=== PATIENT | male | born 1955 | race Caucasian/White ===

== ENCOUNTER → 2017-10-09 | Outpatient (CLI) | payer MEDICARE ==
[2017-10-09 07:34] LABS: Basophils % (A) 1 %; Eosinophils # (A) 0.2 k/uL (0-0.7); Eosinophils % (A) 3 %; HGB 17.1 gm/dL (13.0-17.5); Lymphocytes # (A) 1.8 k/uL (1.0-4.8); Lymphocytes % (A) 31 %; MCH 31.8 pg (25.0-35.0); MCHC 32.3 g/dL (31.0-37.0); MCV 98.3 fL (80.0-100.0); Monocytes # (A) 0.5 k/uL (0-1.0); Monocytes % (A) 8 %; Neutrophils # (A) 3.2 k/uL (1.3-7.7); Neutrophils % (A) 55 %; Platelet Count 189 k/uL (150-450); RBC 5.39 m/uL (4.30-5.90); RDW 14.2 % (11.5-15.5); WBC 5.9 k/uL (3.8-10.6)
[2017-10-09 07:39] LABS: INR 2.5 (<1.2); Prothrombin Time 22.2 sec (9.0-12.0)
[2017-10-09 07:53] LABS: ALT 22 U/L (21-72); AST 21 U/L (17-59); Albumin 4.2 g/dL (3.5-5.0); Alkaline Phosphatase 55 U/L (38-126); Anion Gap 12 mmol/L; Blood Urea Nitrogen 19 mg/dL (9-20); Calcium 9.2 mg/dL (8.4-10.2); Carbon Dioxide 29 mmol/L (22-30); Chloride 96 mmol/L (98-107); Cholesterol 184 mg/dL (<200); Glucose 102 mg/dL (74-99); HDL Cholesterol 59 mg/dL (40-60); LDL Cholesterol,Calculated 99 mg/dL (0-99); Potassium 4.3 mmol/L (3.5-5.1); Sodium 137 mmol/L (137-145); Total Bilirubin 1.1 mg/dL (0.2-1.3); Triglycerides 128 mg/dL (<150)
== END | disposition home or self-care (01) ==
LOC: LABWHC1 06:43
PROVIDERS: ATTEND Internal Medicine
DX: E11.9 Type 2 diabetes mellitus without complications (principal); I10 Essential (primary) hypertension; I48.1 Persistent atrial fibrillation
CPT/HCPCS: 36415; 80053; 80061; 84443; 85025; 85610

== ENCOUNTER → 2018-06-22 | Outpatient (CLI) | payer MEDICARE ==
[2018-06-22 08:01] LABS: Basophils # (A) 0.1 k/uL (0-0.2); Basophils % (A) 1 %; Eosinophils # (A) 0.2 k/uL (0-0.7); Eosinophils % (A) 3 %; HGB 17.8 gm/dL (13.0-17.5); Lymphocytes # (A) 1.9 k/uL (1.0-4.8); Lymphocytes % (A) 31 %; MCH 33.3 pg (25.0-35.0); MCHC 31.8 g/dL (31.0-37.0); MCV 104.6 fL (80.0-100.0); Macrocytosis Slight; Mean Platelet Volume 7.4; Monocytes # (A) 0.4 k/uL (0-1.0); Monocytes % (A) 7 %; Neutrophils # (A) 3.4 k/uL (1.3-7.7); Neutrophils % (A) 56 %; Platelet Count 210 k/uL (150-450); RBC 5.36 m/uL (4.30-5.90)
[2018-06-22 11:55] LABS: Albumin 4.4 g/dL (3.80-4.90); Albumin/Globulin Ratio 1.76 (1.20-2.10); Anion Gap 10.9 mmol/L (4.00-12.00); Calcium 9.5 mg/dL (8.7-10.3); Carbon Dioxide 28.1 mmol/L (21.6-31.8); Globulin 2.5 g/dL (1.6-3.3); LDL Cholesterol,Calculated 99.4 mg/dL (0.0-131.0); Potassium 4.4 mmol/L (3.5-5.5); Total Bilirubin 1.2 mg/dL (0.2-1.2); Total Protein 6.9 g/dL (6.2-8.2); VLDL Calculation 22.6 mg/dL (5.00-40.00)
== END ==
LOC: LABWHC1 07:10
PROVIDERS: ATTEND Internal Medicine
DX: E11.9 Type 2 diabetes mellitus without complications (principal); E78.5 Hyperlipidemia, unspecified; I48.1 Persistent atrial fibrillation
CPT/HCPCS: 36415; 80053; 80061; 83036; 84443; 85025

== ENCOUNTER 2018-12-08 08:31 | Emergency (ER) | payer MEDICARE ==
[2018-12-08 08:43] VITALS: RESP 18
[2018-12-08] MEDS ORDERED: methylPREDNISolone SOD SUCCI 125 MG/2 ML VIAL IM ONE (09:00)
[2018-12-08] MEDS ORDERED: KETOROLAC 60 MG/2 ML VIAL IM STA (09:00)
[2018-12-08] MEDS ORDERED: COLCHICINE 0.6 MG EACH PO STA (09:04)
--- NOTE | 2018-12-08 09:07 | ED ---
Extremity Problem HPI - General Chief complaint: Extremity Problem,Nontraumatic Stated complaint: gout pain Time Seen by Provider: 12/08/18 08:46 Source: patient, RN notes reviewed, old records reviewed Mode of arrival: ambulatory Limitations: no limitations - History of Present Illness Initial comments: This Patient is a 63-year-old male with history of gouty arthritis of his feet. He presents emergency Department today with complaints of pain and his left hand for the past 3 weeks included in swelling. He has a that this is related to arthritis. He states the swelling has continued but has diminished since the initial episode. Patient presents today because now he is having swelling and pain within the second MCP joint. Patient is concerned this will happen to his right hand. Patient states that he is on Coumadin, and therefore has not been taking Motrin. Patient reports he has a follow-up appointment on December 18 with his primary care doctor. - Related Data Home Medications Medication Instructions Recorded Confirmed Digoxin [Lanoxin] 250 mcg PO DAILY 01/14/14 12/08/18 Furosemide [Lasix] 80 mg PO BID 01/14/14 12/08/18 Lisinopril [Zestril] 2.5 mg PO DAILY 01/14/14 12/08/18 Simvastatin [Zocor] 20 mg PO HS 01/14/14 12/08/18 Spironolactone [Aldactone] 25 mg PO DAILY 01/14/14 12/08/18 Warfarin [Coumadin] 5 mg PO MOWEFR 01/14/14 12/08/18 Acetaminophen-Codeine 300-30mg 1 tab PO DAILY PRN 12/08/18 12/08/18 [Tylenol #3] Metoprolol Succinate (ER) [Toprol 100 mg PO BID 12/08/18 12/08/18 Xl] Warfarin Sodium 2.5 mg PO SUTUTHSA 12/08/18 12/08/18 metFORMIN HCL 1,000 mg PO DAILY 12/08/18 12/08/18 Previous Rx's Medication Instructions Recorded Colchicine [Colcrys] 0.6 mg PO BID #4 tablet 12/08/18 predniSONE 10 mg PO DAILY #15 tab 12/08/18 Allergies Allergy/AdvReac Type Severity Reaction Status Date / Time No Known Allergies Allergy Verified 12/08/18 09:10 Review of Systems ROS Statement: Those systems with pertinent positive or pertinent negative responses have been documented in the HPI. ROS Other: All systems not noted in ROS Statement are negative. Past Medical History Past Medical History: Hyperlipidemia, Hypertension Additional Past Medical History / Comment(s): gout History of Any Multi-Drug Resistant Organisms: None Reported Past Surgical History: No Surgical Hx Reported Past Psychological History: No Psychological Hx Reported Smoking Status: Current every day smoker Past Alcohol Use History: Daily, Heavy Past Drug Use History: None Reported General Exam - General Exam Comments Initial Comments: This is a 63-year-old male. Alert and oriented 3.No distress. Limitations: no limitations General appearance: alert, in no apparent distress Head exam: Present: atraumatic, normocephalic, normal inspection Eye exam: Present: normal appearance, PERRL, EOMI. Absent: scleral icterus, conjunctival injection, periorbital swelling ENT exam: Present: normal exam, mucous membranes moist Neck exam: Present: normal inspection. Absent: tenderness, meningismus, lymphadenopathy Respiratory exam: Present: normal lung sounds bilaterally. Absent: respiratory distress, wheezes, rales, rhonchi, stridor Cardiovascular Exam: Present: regular rate, normal rhythm, normal heart sounds. Absent: systolic murmur, diastolic murmur, rubs, gallop, clicks GI/Abdominal exam: Present: soft, normal bowel sounds. Absent: distended, tenderness, guarding, rebound, rigid Extremities exam: Present: normal inspection, full ROM, normal capillary refill. Absent: tenderness, pedal edema, joint swelling, calf tenderness Right Forearm Wrist exam: Present: normal inspection, full ROM Hand Wrist exam: Present: full ROM, erythema (over second MCP, swelling noted. Full ROM). Absent: normal inspection Neuro motor exam: Present: wrist extension intact, thumb opposition intact, thumb IP flexion intact, thumb adduction intact, fingers 2-5 abduction intact Back exam: Present: normal inspection Neurological exam: Present: alert, oriented X3, CN II-XII intact Psychiatric exam: Present: normal affect, normal mood Skin exam: Present: warm Course Vital Signs 12/08/18 08:39 Temperature 98.8 F Pulse Rate 66 Respiratory 18 Rate Blood Pressure 124/87 O2 Sat by Pulse 98 Oximetry Medical Decision Making - Medical Decision Making This is a 63-year-old male presents emergency room today with bilateral hand pain and swelling. Patient reports has had left hand swelling and pain for the past 3 weeks. He states that today he noticed increased pain over his second MCP joint. Patient has concern for another gout exacerbation. Given IM Toradol and slight Medrol. Given a dose of colchicine emergency. Patient was started on steroid taper, as well as chemistries and colchicine anti-inflammatory meds. Discussed strict return parameters and close or for follow-up. Patient agrees to treatment plan will comply. Return parameters were discussed. - Radiology Data Radiology results: report reviewed Findings may represent zoster arthritis with features of what may be chronic gout. Disposition Clinical Impression: Gouty arthritis of left hand, Acute gout of right hand Disposition: HOME SELF-CARE Condition: Good Instructions (If sedation given, give patient instructions): Low Purine Diet (ED), Gout (ED) Additional Instructions: Patient advised to have close follow-up with data modeling specialist. Patient can take ibuprofen 600 mg tablets 3 times a day for the next 2-3 days as well. Take medications as prescribed. Close follow-up with your primary care doctor. Prescriptions: Colchicine [Colcrys] 0.6 mg PO BID #4 tablet predniSONE 10 mg PO DAILY #15 tab Is patient prescribed a controlled substance at d/c from ED?: No Referrals: Tra Duggan MD [Primary Care Provider] - 1-2 days Jean Paul Lee DO [Doctor of Osteopathic Medicine] - 1-2 days Farhan Chavez DO [Doctor of Osteopathic Medicine] - 1-2 days Time of Disposition: 10:22
--- NOTE | 2018-12-08 10:01 | XR ---
Bilateral hands HISTORY: Gout, pain 2 views of each hand are submitted on a total of 4 images No comparisons At the carpometacarpal joints of the first digits there is joint space widening, some local sclerosis , mild subluxation, possibly related to old gout. Ossific densities are present lateral to the right carpometacarpal joint. There are cystic lucencies are present throughout bilateral carpal bones. Ther e is joint space loss and marginal spurring at the metacarpophalangeal joints. Soft tissue swelling i s noted. IMPRESSION: Findings may represent osteoarthritis with features of what may be chronic gout.
[2018-12-08 10:38] VITALS: BP 105/73; PULSE 53; TEMP 97.9
== END 2018-12-08 10:40 | disposition home or self-care (01) ==
LOC: EC 08:31
DX: M10.9 Gout, unspecified (principal); E78.5 Hyperlipidemia, unspecified; I10 Essential (primary) hypertension; F17.200 Nicotine dependence, unspecified, uncomplicated; Z79.01 Long term (current) use of anticoagulants; Z79.84 Long term (current) use of oral hypoglycemic drugs; Z79.899 Other long term (current) drug therapy
CPT/HCPCS: 73120; 99284; 96372 ×2; J2930; J1885

== ENCOUNTER → 2019-07-22 | Outpatient (CLI) | payer MEDICARE ==
[2019-07-22 08:45] LABS: Basophils # (A) 0.1 k/uL (0-0.2); Basophils % (A) 1 %; Eosinophils # (A) 0.2 k/uL (0-0.7); Eosinophils % (A) 3 %; HCT 51.9 % (39.0-53.0); HGB 17.2 gm/dL (13.0-17.5); Lymphocytes # (A) 1.6 k/uL (1.0-4.8); Lymphocytes % (A) 24 %; MCH 33.6 pg (25.0-35.0); MCHC 33.1 g/dL (31.0-37.0); MCV 101.5 fL (80.0-100.0); Macrocytosis Slight; Mean Platelet Volume 8.4; Monocytes # (A) 0.4 k/uL (0-1.0); Monocytes % (A) 6 %; Neutrophils # (A) 4.1 k/uL (1.3-7.7); Neutrophils % (A) 63 %; Platelet Count 196 k/uL (150-450); RBC 5.11 m/uL (4.30-5.90); RDW 13.1 % (11.5-15.5); WBC 6.5 k/uL (3.8-10.6)
[2019-07-22 15:43] LABS: Albumin 4.5 g/dL (3.80-4.90); Albumin/Globulin Ratio 1.96 (1.60-3.17); Anion Gap 10.2 mmol/L (4.00-12.00); BUN/Creat Ratio 28.33 Ratio (12.00-20.00); Calcium 9.3 mg/dL (8.7-10.3); Carbon Dioxide 25.8 mmol/L (21.6-31.8); Chol/HDL Ratio 3.4; Globulin 2.3 g/dL (1.6-3.3); LDL Cholesterol,Calculated 83.4 mg/dL (0.0-131.0); Potassium 4.4 mmol/L (3.5-5.5); Total Bilirubin 1.1 mg/dL (0.3-1.2); Total Protein 6.8 g/dL (6.2-8.2); VLDL Calculation 19.6 mg/dL (5.00-40.00)
== END | disposition home or self-care (01) ==
LOC: LABWHC1 08:01
PROVIDERS: ATTEND Family Medicine
DX: I10 Essential (primary) hypertension (principal); E11.9 Type 2 diabetes mellitus without complications; E78.5 Hyperlipidemia, unspecified; Z12.5 Encounter for screening for malignant neoplasm of prostate
CPT/HCPCS: 36415; 80053; 80061; 84443; 85025

== ENCOUNTER → 2021-11-13 | Outpatient (CLI) | payer MEDICARE ==
[2021-11-13 15:03] LABS: HCT 53.5 % (39.6-50.0); HGB 16.4 g/dL (13.0-17.0); MCHC 30.7 g/dL (32.0-37.0); MCV 110.8 fL (80.0-97.0); Mean Platelet Volume 11.4 fL (9.5-12.2); NRBC Per 100 WBC 0 /100 WBCS (0.0-0.0); Platelet Count 149 X 10*3/uL (140-440); RBC 4.83 X 10*6/uL (4.40-5.60); RDW 16.7 % (11.5-14.5); WBC 5.22 X 10*3/uL (4.50-10.00)
[2021-11-13 15:26] LABS: ALT 10 U/L (10-49); AST 17 U/L (14-35); African American GFR (CKD) 107.8 (60.0-200.0); Albumin 4.1 g/dL (3.8-4.9); Albumin/Globulin Ratio 1.68 (1.60-3.17); Alkaline Phosphatase 54 U/L (41-126); BUN/Creat Ratio 23.32 Ratio (12.00-20.00); Blood Urea Nitrogen 18.7 mg/dL (9.0-27.0); Calcium 9.3 mg/dL (8.7-10.3); Carbon Dioxide 30.1 mmol/L (20.0-27.5); Chloride 92 mmol/L (96-109); Chol/HDL Ratio 2.94 Ratio; Globulin 2.4 g/dL (1.6-3.3); Glucose 100 mg/dL (70-110); LDL Cholesterol,Calculated 59.2 mg/dL (0.0-131.0); Potassium 4.2 mmol/L (3.5-5.5); Sodium 136 mmol/L (135-145); Total Protein 6.6 g/dL (6.2-8.2)
[2021-11-13 16:57] LABS: Basophils # (A) 0.03 X 10*3/uL (0.00-0.10); Basophils % (A) 0.6 %; Eosinophils % (A) 1.9 %; Immature Grans, Automated 0.2 %; Lymphocytes # (A) 1.15 X 10*3/uL (0.90-5.00); Macrocytosis (M) 3+; Monocytes # (A) 0.42 X 10*3/uL (0.20-1.00); Neutrophils # (A) 3.51 X 10*3/uL (1.80-7.70); Neutrophils % (A) 67.3 %
== END | disposition home or self-care (01) ==
LOC: LABWHC1 08:09
PROVIDERS: ATTEND Family Medicine
DX: Z12.5 Encounter for screening for malignant neoplasm of prostate (principal); I10 Essential (primary) hypertension; E78.5 Hyperlipidemia, unspecified; E11.9 Type 2 diabetes mellitus without complications
CPT/HCPCS: 80061; 80053; 84443; 85025; 83036; 36415; G0103

== ENCOUNTER → 2021-12-05 | Outpatient (CLI) | payer MEDICARE ==
[2021-12-05 08:43] LABS: African American GFR (CKD) >90 (>60 ml/min/1.73 sqM); Non-African American GFR(CKD) >90 (>60 ml/min/1.73 sqM)
[2021-12-05 19:41] LABS: Total Protein 24 Hour,Urine 71.6 mg/dL (0.0-165.0)
[2021-12-05 20:47] LABS: Total Volume 24 Hour,Urine 2800 mL
== END | disposition home or self-care (01) ==
LOC: LABWHC1 07:04
PROVIDERS: ATTEND Family Medicine
DX: R80.9 Proteinuria, unspecified (principal)
CPT/HCPCS: 36415; 81050; 82565; 82575; 84156

== ENCOUNTER 2023-01-29 01:37 | Emergency (ER) | payer MEDICARE ==
[2023-01-29 01:51] VITALS: BP 121/96; PULSE 85; RESP 20
--- NOTE | 2023-01-29 02:30 | ED ---
General Adult HPI - General Chief complaint: Extremity Injury, Lower Stated complaint: Leg Pain Time Seen by Provider: 01/29/23 01:54 Source: patient Mode of arrival: EMS Limitations: no limitations - History of Present Illness Initial comments: Dictation was produced using [employer] dictation software. please excuse any grammatical, word or spelling errors. Chief Complaint: 67-year-old male presents with atraumatic right knee pain History of Present Illness: Patient 67-year-old male states that he's been having issues for the last several weeks. States that he was exerting himself said he felt sharp pain over the lateral aspect of his right knee. Patient states that these pains have been coming more often. He does have history of arthritis in his left shoulder. The ROS documented in this emergency department record has been reviewed and confirmed by me. Those systems with pertinent positive or negative responses have been documented in the HPI. All other systems are other negative and/or noncontributory. - Related Data Home Medications Medication Instructions Recorded Confirmed Digoxin [Lanoxin] 250 mcg PO DAILY 01/14/14 12/08/18 Furosemide [Lasix] 80 mg PO BID 01/14/14 12/08/18 Simvastatin [Zocor] 20 mg PO HS 01/14/14 12/08/18 Spironolactone [Aldactone] 25 mg PO DAILY 01/14/14 12/08/18 Warfarin [Coumadin] 5 mg PO MOWEFR 01/14/14 12/08/18 lisinopriL [Zestril] 2.5 mg PO DAILY 01/14/14 12/08/18 Acetaminophen-Codeine 300-30mg 1 tab PO DAILY PRN 12/08/18 12/08/18 [Tylenol #3] Metoprolol Succinate (ER) [Toprol 100 mg PO BID 12/08/18 12/08/18 Xl] Warfarin Sodium 2.5 mg PO SUTUTHSA 12/08/18 12/08/18 metFORMIN HCL 1,000 mg PO DAILY 12/08/18 12/08/18 Previous Rx's Medication Instructions Recorded Colchicine [Colcrys] 0.6 mg PO BID #4 tablet 12/08/18 predniSONE 10 mg PO DAILY #15 tab 12/08/18 oxyCODONE HCL/ACETAMINOPHEN 1 tab PO Q6HR PRN 3 Days #12 tab 01/29/23 [Percocet 5-325 mg] Allergies Allergy/AdvReac Type Severity Reaction Status Date / Time No Known Allergies Allergy Verified 01/29/23 01:51 Review of Systems ROS Statement: Those systems with pertinent positive or pertinent negative responses have been documented in the HPI. ROS Other: All systems not noted in ROS Statement are negative. Past Medical History Past Medical History: Hyperlipidemia, Hypertension Additional Past Medical History / Comment(s): gout History of Any Multi-Drug Resistant Organisms: None Reported Past Surgical History: No Surgical Hx Reported Past Psychological History: No Psychological Hx Reported Smoking Status: Current every day smoker Past Alcohol Use History: Daily, Heavy Past Drug Use History: None Reported General Exam - General Exam Comments Initial Comments: PHYSICAL EXAM: General Impression: Alert and oriented x3, not in acute distress HEENT: Normocephalic atraumatic, extra-ocular movements intact, pupils equal and reactive to light bilaterally, mucous membranes moist. Cardiovascular: Heart regular rate and rhythm Chest: Able to complete full sentences, no retractions, no tachypnea Motor: no focal deficits noted Neurological: CN II-XII grossly intact, no focal motor or sensory deficits noted Psych: Normal affect and mood Right knee: Palpatory tenderness to the lateral aspect of his right knee, no effusion. No significant pain with the flexion and extension Limitations: no limitations Course Vital Signs 01/29/23 01:46 Temperature 99.1 F Pulse Rate 85 Respiratory 20 Rate Blood Pressure 121/96 O2 Sat by Pulse 94 L Oximetry Medical Decision Making - Medical Decision Making Was pt. sent in by a medical professional or institution (, PA, POCKET GRINDER OPERATOR, urgent care, hospital, or intermediate...) When possible be specific @ -No Did you speak to anyone other than the patient for history (EMS, parent, family, police, friend...)? What history was obtained from this source @ -No Did you review nursing and triage notes (agree or disagree)? Why? @ -I reviewed and agree with nursing and triage notes Were old charts reviewed (outside hosp., previous admission, EMS record, old EKG, old radiological studies, urgent care reports/EKG's, intermediate records)? Report findings @ -No old charts were reviewed Differential Diagnosis (chest pain, altered mental status, abdominal pain women, abdominal pain men, vaginal bleeding, musculoskeletal, weakness, fever, dyspnea, syncope, headache, dizziness, GI bleed, back pain, seizure, CVA, palpatations, mental health)? @ -not applicable EKG interpreted by me (3pts min.). @ -None done X-rays interpreted by me (1pt min.). @ -Right knee X-ray shows no acute occult fractures CT interpreted by me (1pt min.). @ -None done U/S interpreted by me (1pt. min.). @ -None done What testing was considered but not performed or refused? (CT, X-rays, U/S, labs)? Why? @ -None What meds were considered but not given or refused? Why? @ -None Did you discuss the management of the patient with other professionals (professionals i.e. , PA, POCKET GRINDER OPERATOR, lab, RT, psych nurse, social work associate, supervisor in charge, teacher, minesweeping officer, casework supervisor)? Give summary @ -No Was smoking cessation discussed for >3mins.? @ -No Was critical care preformed (if so, how long)? @ -No Were there social determinants of health that impacted care today? How? (Homelessness, low income, unemployed, alcoholism, drug addiction, transportation, low edu. Level, literacy, decrease access to med. care, snf, rehab)? @ -No Was there de-escalation of care discussed even if they declined (Discuss DNR or withdrawal of care, Hospice)? DNR status @ -No What co-morbidities impacted this encounter? (DM, HTN, Smoking, COPD, CAD, Cancer, CVA, ARF, Chemo, Hep., AIDS, mental health diagnosis, sleep apnea, morbid obesity)? @ -None Was patient admitted / discharged? Hospital course, mention meds given and route, prescriptions, significant lab abnormalities, going to OR and other pertinent info. @ -67-year-old male presents emergency part for atraumatic knee pain. Vital signs stable. X-ray shows no call fractures. No concerns for septic arthritis or cellulitis. Patient discharged with outpatient referral to a specialist. Undiagnosed new problem with uncertain prognosis? @ -No Drug Therapy requiring intensive monitoring for toxicity (Heparin, Nitro, Insulin, Cardizem)? @ -No Were any procedures done? @ -No Diagnosis/symptom? Acute, or Chronic, or Acute on Chronic? Uncomplicated (without systemic symptoms) or Complicated (systemic symptoms)? @ -Atraumatic knee pain Side effects of treatment? @ -No Exacerbation, Progression, or Severe Exacerbation? @ -No Poses a threat to life or bodily function? How? (Chest pain, [place], [place], pneumonia, PE, COPD, DKA, ARF, appy, cholecystitis, CVA, Diverticulitis, Homicidal, Suicidal, threat to staff... and all critical care pts) @ -No Disposition Clinical Impression: Knee pain Disposition: HOME SELF-CARE Condition: Good Instructions (If sedation given, give patient instructions): Knee Pain (ED) Prescriptions: oxyCODONE HCL/ACETAMINOPHEN [Percocet 5-325 mg] 1 tab PO Q6HR PRN 3 Days #12 tab PRN Reason: Pain Is patient prescribed a controlled substance at d/c from ED?: Yes If prescribed controlled substance>3 days was MAPS reviewed?: Prescribed <3 Days Referrals: Tra Duggan [Primary Care Provider] - 1-2 days Abran Roa DO [Doctor of Osteopathic Medicine] - 1-2 days Time of Disposition: 04:57
--- NOTE | 2023-01-29 04:44 | XR ---
EXAM: XR Right Knee, 3 Views CLINICAL HISTORY: ITS.REASON XR Reason: atraumatic knee pain TECHNIQUE: Three views of the right knee. COMPARISON: No relevant prior studies available. FINDINGS: Bones/joints: Moderate suprapatellar joint effusion. Curvilinear ossification near the medial collateral ligament attachment along the medial femoral condyle. No acute fracture. No dislocation. Soft tissues: Unremarkable. Vasculature: Scattered vascular calcifications. IMPRESSION: 1. Moderate suprapatellar joint effusion. 2. Curvilinear ossification near the medial collateral ligament attachment along the medial femoral condyle. 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 Query mild adjacent soft tissue swelling and acute component not excluded. 3. Could consider MRI to assess for internal derangement.
[2023-01-29] MEDS ORDERED: oxyCODONE-APAP 10-325MG 1 EACH TAB PO STA (04:59)
[2023-01-29 05:34] VITALS: TEMP 98.5
== END 2023-01-29 05:34 | disposition home or self-care (01) ==
LOC: EC 01:37
DX: M25.561 Pain in right knee (principal); E78.5 Hyperlipidemia, unspecified; I10 Essential (primary) hypertension; F17.200 Nicotine dependence, unspecified, uncomplicated; Z79.84 Long term (current) use of oral hypoglycemic drugs; Z79.01 Long term (current) use of anticoagulants; Z79.899 Other long term (current) drug therapy
CPT/HCPCS: 99284